=== PATIENT | female | born 1990 | race Caucasian/White ===

== ENCOUNTER 2018-09-21 19:25 | Emergency (ER) | payer SELFPAY ==
[2018-09-21 21:36] LABS: ABS Basophils 0.1 10^3/ul (0-0.2); ABS Eosinophils 0.3 10^3/ul (0-0.6); ABS Lymphocytes 2.8 10^3/ul (1.0-4.8); ABS Monocytes 0.9 10^3/ul (0-0.8); ABS Neutrophils 7.2 10^3/ul (1.5-7.7); ABS Nucleated RBC 0 10^3/ul; Eosinophil % 2.8 % (0-6); Hematocrit 43 % (35-47); Mean Corpuscular HGB Conc 35 g/dl (31-36); Mean Corpuscular Hemoglobin 30 pg (27-31); Mean Corpuscular Volume 88 fL (80-97); Mean Platelet Volume 8.5 um3 (7.4-10.4); Nucleated Red Blood Cells % 0.2; Platelet Count 215 10^3/ul (150-450); Red Blood Count 4.94 10^6/ul (4.00-5.40); Red Cell Distribution Width 13 % (10.5-15); White Blood Count 11.3 10^3/ul (3.5-10.8)
[2018-09-21 21:53] LABS: EGFR Non-African American 87.3 (>60)
[2018-09-21 22:24] VITALS: BP 138/82
[2018-09-21] MEDS ORDERED: Bupivacaine 0.5% W/EPI SDV* 30 ML VIAL INJ ONE (22:25)
--- NOTE | 2018-09-21 22:28 | ED ---
Lower Extremity - HPI Summary HPI Summary: 27 y/o female presents to the ED c/o pain, redness and swelling at chronic cyst above R knee onset 4 days ago. Pt has had a cyst above the R knee, confirmed by MRI, for 2 years. 4 days ago the pt developed pain, redness and swelling at the site of cyst. Pain rated 8/10 in severity. Pt states it has doubled in size over the past 4 days due to swelling. Pain aggravated with movement of the knee. Associated sx: fever. - History of Current Complaint Chief Complaint: EDExtremityLower Stated Complaint: RT KNEE ABCESS Time Seen by Provider: 09/21/18 22:20 Hx Obtained From: Patient Onset of Pain: Days Pain Intensity: 8 Pain Scale Used: 0-10 Numeric Timing: Constant Location: Is Discrete @ - above R knee Associated Signs And Symptoms: Positive: Redness, Fever, Knee Pain, Other - soreness Aggravating Factor(s): Movement - R knee Alleviating Factor(s): Nothing - Allergies/Home Medications Allergies/Adverse Reactions: Allergies Allergy/AdvReac Type Severity Reaction Status Date / Time No Known Allergies Allergy Verified 09/21/18 19:36 PMH/Surg Hx/FS Hx/Imm Hx Previously Healthy: No Cardiovascular History: Denies: Hx Congestive Heart Failure Respiratory History: Denies: Hx Chronic Obstructive Pulmonary Disease (COPD) Infectious Disease History: No Infectious Disease History: Denies: Traveled Outside the [place] in Last 30 Days - Family History Known Family History: Positive: None - Social History Alcohol Use: Occasionally Hx Substance Use: Yes Substance Use Type: Reports: Marijuana Review of Systems Positive: Fever Eyes: Negative ENT: Negative Cardiovascular: Negative Respiratory: Negative Gastrointestinal: Negative Genitourinary: Negative Musculoskeletal: Other - cyst at R knee Skin: Other - redness and soreness @ R knee Neurological: Negative Psychological: Normal All Other Systems Reviewed And Are Negative: Yes Physical Exam - Summary Physical Exam Summary: Appearance: Well-appearing, Well-nourished, lying in bed comfortable Skin: Warm, dry, no obvious rash. Grape size abscess with surrounding erythema of about 2 cm on the lateral aspect of the R knee. Eyes: sclera anicteric, no conjunctival pallor ENT: mucous membranes moist Neck: deferred Respiratory: No signs of respiratory distress Cardiovascular: Appears well perfused, pulses are nml Abdomen: deferred Musculoskeletal: Moving all 4 extremities without obvious discomfort Neurological: Awake and alert, mentation is normal, speech is fluent and appropriate Psychiatric: affect is normal, does not appear anxious or depressed Triage Information Reviewed: Yes Vital Signs On Initial Exam: Initial Vitals Temp Pulse Resp BP Pulse Ox 98.3 F 86 16 134/82 98 09/21/18 19:32 09/21/18 19:32 09/21/18 19:32 09/21/18 19:32 09/21/18 19:32 Vital Signs Reviewed: Yes Procedures - Incision and Drainage 1 Site: Abscess at R lateral knee Anesthesia: Other - 0.5% bupivacaine with epinephrine Instrument(s): Scalpel - 11 Packing: Drain - Moderate amount of puss Diagnostics - Vital Signs Vital Signs Temp Pulse Resp BP Pulse Ox 09/21/18 19:32 98.3 F 86 16 134/82 98 - Laboratory Lab Results: Lab Results 09/21/18 09/21/18 09/21/18 Range/Units 21:24 21:24 21:24 WBC 11.3 H (3.5-10.8) 10^3/ul RBC 4.94 (4.00-5.40) 10^6/ul Hgb 15.0 (12.0-16.0) g/dl Hct 43 (35-47) % MCV 88 (80-97) fL MCH 30 (27-31) pg MCHC 35 (31-36) g/dl RDW 13 (10.5-15) % Plt Count 215 (150-450) 10^3/ul MPV 8.5 (7.4-10.4) um3 Neut % (Auto) 63.3 (38-83) % Lymph % (Auto) 25.0 (25-47) % [place] % (Auto) 7.8 H (0-7) % Eos % (Auto) 2.8 (0-6) % Baso % (Auto) 1.1 (0-2) % Absolute Neuts (auto) 7.2 (1.5-7.7) 10^3/ul Absolute Lymphs (auto) 2.8 (1.0-4.8) 10^3/ul Absolute Monos (auto) 0.9 H (0-0.8) 10^3/ul Absolute Eos (auto) 0.3 (0-0.6) 10^3/ul Absolute Basos (auto) 0.1 (0-0.2) 10^3/ul Absolute Nucleated RBC 0 10^3/ul Nucleated RBC % 0.2 ESR Pending Sodium 139 (135-145) mmol/L Potassium 3.9 (3.5-5.0) mmol/L Chloride 106 (101-111) mmol/L Carbon Dioxide 29 (22-32) mmol/L Anion Gap 4 (2-11) mmol/L BUN 16 (6-24) mg/dL Creatinine 0.78 (0.51-0.95) mg/dL Est GFR ( Amer) 105.7 (>60) Est GFR (Non-Af Amer) 87.3 (>60) BUN/Creatinine Ratio 20.5 H (8-20) Glucose 97 (70-100) mg/dL Lactic Acid 0.6 (0.5-2.0) mmol/L Calcium 9.6 (8.6-10.3) mg/dL Total Bilirubin 0.40 (0.2-1.0) mg/dL AST 14 (13-39) U/L ALT 15 (7-52) U/L Alkaline Phosphatase 50 (34-104) U/L C-Reactive Protein 1.16 (<8.01) mg/L Total Protein 6.8 (6.4-8.9) g/dL Albumin 4.5 (3.2-5.2) g/dL Globulin 2.3 (2-4) g/dL Albumin/Globulin Ratio 2.0 (1-3) Result Diagrams: 09/21/18 21:24 09/21/18 21:24 Lab Statement: Any lab studies that have been ordered have been reviewed, and results considered in the medical decision making process. Lower Extremity Course/Dx - Course Assessment/Plan: 27 y/o female presents to the ED c/o pain, redness and swelling at chronic cyst above R knee onset 4 days ago. Pt has had a cyst above the R knee, confirmed by MRI, for 2 years. Pt c/o fever as well. Abscess confirmed with portable US. Abscess drained in the ED course - see note. Pt will be d/c home with Rx Bactrim. - Diagnoses Provider Diagnoses: Abscess of knee, right Discharge - Sign-Out/Discharge Documenting (check all that apply): Patient Departure - Discharge Plan Condition: Improved Disposition: HOME Prescriptions: Sulfamethox/Trimethoprim DS* [Bactrim DS 800/160 TAB*] 1 tab PO BID #10 tab Patient Education Materials: Abscess (ED) Referrals: George Almendarez MD [Medical Doctor] - 2 Weeks (or sooner if the infection does not seem to clear up) - Billing Disposition and Condition Condition: IMPROVED Disposition: Home - Attestation Statements Document Initiated by Zanaibedward: Yes Documenting Scribe: Kamran De La Cruz Provider For Whom Maryan is Documenting (Include Credential): Stanislav Plunkett MD Scribe Attestation: Kamran Moon, scribed for Stanislav Plunkett MD on 09/25/18 at 1836. Scribe Documentation Reviewed: Yes Provider Attestation: The documentation as recorded by the Kamran godinez accurately reflects the service I personally performed and the decisions made by me, Stanislav Plunkett MD
[2018-09-21] MEDS ORDERED: Sulfamethox/Trimethoprim DS 800/160* TAB PO ONE (22:37)
== END 2018-09-21 22:47 | disposition home or self-care (01) ==
LOC: ED 19:25
DX: L02.415 Cutaneous abscess of right lower limb (principal); R50.9 Fever, unspecified; M25.561 Pain in right knee
CPT/HCPCS: 10060; 36415; 80053; 83605; 85025; 85652; 86140; 96374; 99282; A9270-GY